=== PATIENT | male | born 1990 | race Caucasian/White ===

== ENCOUNTER 2021-08-16 11:20 | Inpatient (IN) | payer MEDICARE, MEDICAID, SELFPAY ==
[2021-08-16 11:45] VITALS: BMI 31.6
[2021-08-16 12:36] VITALS: BP 132/90; PULSE 87; RESP 18; TEMP 36.5; O2SAT 96
--- NOTE | 2021-08-16 13:29 | PC.NURSE ---
Patient requested to speak with someone from [facility]. Called #[id number] and left message.
[2021-08-16 14:00] VITALS: BP 132/90; PULSE 87; RESP 18; TEMP 36.5; O2SAT 96
--- NOTE | 2021-08-16 15:00 | P.NPUHP_ITS ---
Providers/Chief Complaint Admitting Physician: Taras Estrella MD Chief Complaint: Direct Admit NPU HPI NPU History of Present Illness Jose E Bright is a 30 year old male transferred here at here from the [facility] with the following report: Upon entering the room the patient states that my mom wants to kill me and I almost got hit by four cars . He frequently looks to the corner of the room and has a dialogue with the wall. He states that he is a brother in [place] and can save me from Satan . He is also trying to get out of the cartel . Patient states that he does hear voices and admits to visual hallucinations as well. According to the patient he last used methamphetamine yesterday but has been using for 65 years. He denies walking in traffic and trying to get hit by a car. He said that he had been dismissed from [facility] because of drug use. He said they wanted him to be on a 28-day treatment program. He said that prior to his treatment at the emergency room, he suddenly decided that he needed to walk 7 miles to the [facility] program and try again to get admitted into the program. He did that with no shoes on. Several attempts were made to determine why he did not wear shoes. He only said that he suddenly realized that he needed to do it and left the house without shoes. He said that they have tried to diagnose him with schizophrenia many times but he does not believe that he has that diagnosis. He initially denied hearing voices or seeing things but later did admit to having some voices in the past but not really now. He says that they gave him Haldol and fdc but he does not know why. He was in the fdc for tampering with a vehicle and resisting arrest. He is on disability since 2016. He does not know what his diagnosis was. He said he was given an MRI and had disability 1 month later. He does not feel that he has a mental health problem except for anger problems. He denies being in the psychiatric hospital previously. However he later said that when he is in the hospital he frequently gets angry because he is in so much pain. He says when that happens shouts at him horrible things and then he becomes angry and agitated and loses his temper. He says he hates that about himself. He later said that really his only problem is keeping a bipolar. I have had 30 of them. I cannot read them or understand them. He cannot preach from them . He is a very poor historian as far as medication goes. This seems to be more from not wanting to take medication as opposed to not remembering the information. He told the nurse that he was allergic to Haldol and gets a rash. He told me that they said he had a allergic reaction but he does not believe that he does. He has taken Haldol many times. However it does not do anything for him. He does not know why they prescribe it for him. They gave him multiple doses of Zyprexa Zydis when he was in the emergency room the last few days. He said it did not do anything for him. He has prescriptions in the system for Depakote 500 mg twice a day, risperidone 2 mg and trazodone 50 mg. At 1 point he said that he had never taken them before but they prescribed them at the hospital just this week. However he also said some other things to imply that he had taken them previously and that they did not do anything for him. He primarily wanted to take something for anger and agreed to take some Trileptal. He was given the list of antipsychotics and agreed to take some Geodon. He likes the fact that it is taken with food because he likes to eat. PAST PSYCHIATRIC HISTORY As above. SOCIAL HISTORY he said that his parents were neglectful and did not teach him anything. He said that he was pretty much on his own and they never taught him how to do anything or how to act. He denies any abuse as a child. The longest job that he has held was at [employer] for about 6 months. He was in the [employer] and made it through basic training and went AWOL a week later. His most recent job was at [employer]. At one point he said he quit because he could not make too much money or he would lose his disability. 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 Meds NPU Allergies Allergy/AdvReac Type Severity Reaction Status Date / Time haloperidol [From Haldol] Allergy ALGY-Rash Verified 08/16/21 11:47 Mental Status Exam 2 MSE Comments: This is a 30-year-old overweight male who appears well-nourished and well-developed and about his stated age. He is pleasant and cooperative throughout the interview. He is in hospital scrubs and fairly well groomed. psychomotor activity is normal. Speech is at a regular rate and rhythm, normal volume, good articulation, not pressured. Alert, oriented X3 Attention and concentration seems to be fairly good. Memory is intact Mood is good. Affect is euthymic. Thought process is logical and goal-directed. Thought content: Denies auditory and visual hallucinations. No delusions or paranoia are noted. No current suicidal ideation, and no homicidal ideation. Fund of knowledge is appears to be average. Insight and judgment appear to be poor. Impulse control is poor as well. Vitals/I&O/Wt Last Vital Signs Temp 97.7 F 08/16/21 14:00 Pulse 87 08/16/21 14:00 Resp 18 08/16/21 14:00 BP 132/90 08/16/21 14:00 Pulse Ox 96 08/16/21 14:00 Weight last 48 hrs Weight 97.341 kg A&P Assessment and plan (1) Schizophrenia, chronic condition: Plan: 1. We will start Trileptal 300 mg 3 times a day and Geodon 40 mg twice a day at his request. 2. Continue every 15 minute checks for safety. 3. Encourage individual, group and milieu therapies. 4. Encourage sober living treatment after discharge at the highest level of care to which she is willing to commit. 5. We will monitor for safety for himself in the community prior to discharge. Status: Acute (2) Methamphetamine abuse: Status: Acute Additional A&P Information This is a 30-year-old male who is on disability most likely from schizophrenia. He is not very forthcoming with symptoms. He agrees to take medication. Involuntary Hold Information 96 Hour Hold: 96 Hour Involuntary Admission: No Attestations NPU Medical Necessity Statement*: Inpatient hospitalization is medically necessary and the clinically appropriate intervention at this time. We will initiate medications and make changes as indicated. He will be in the hospital for over 2 midnights. Likely length of stay 4-6 days Coding Level of Care Code Acute Heavy Equipment Operator Apprentice for Francois Garrett Diagnoses Schizophrenia, chronic condition F20.9 Methamphetamine abuse F15.10
[2021-08-16] MEDS: OXcarbazepine 300 mg Tablet PO (17:09)
[2021-08-16] MEDS: ziprasidone hcl 40 mg Capsule PO (17:09)
[2021-08-16] MEDS: blistex lip oint 7 gm Tube 1 APPLIC TOPICAL (17:19)
[2021-08-16] MEDS: acetaminophen 325 mg Tablet 650 MG PO (18:02)
[2021-08-16 20:55] VITALS: BP 135/78; PULSE 67; RESP 15; TEMP 37.1; O2SAT 99
[2021-08-17] MEDS: acetaminophen 325 mg Tablet 650 MG PO (05:38)
[2021-08-17 06:00] VITALS: BP 138/95; PULSE 70; RESP 18; TEMP 36.8; O2SAT 100
[2021-08-17] MEDS: ziprasidone hcl 40 mg Capsule PO ×2 (06:06→16:47)
[2021-08-17] MEDS: OXcarbazepine 300 mg Tablet PO ×3 (06:06→16:47)
--- NOTE | 2021-08-17 12:40 | W.PM.NPUPNS ---
Subjective NPU Subjective: Interval history: He says he has a buzzing in his head and cannot think after taking the medicine this morning. He says is never happened before. He did not have a problem when he took it last night. We decided to take it again tonight and see how that goes and then tomorrow morning only take the Geodon and not the Trileptal. We will see if he has any side effects at that point. He then asked if we should change the diet that we had talked about starting yesterday. I told him I did not remember talking about changing his diet. He said that he used to drink a half a gallon of water a day. He would boil some water and put it in a pot with some butter and throwing a cup of oatmeal and eat that for breakfast. He would make a bologna sandwich and eat half of it and put the other half in a bag and eat it for dinner. He said that his thinking was more clear when he was on that diet than it had been before or since. Mental Status Exam MSE Comments: This is a 30-year-old overweight male who appears well-nourished and well-developed and about his stated age. He is pleasant and cooperative throughout the interview. He is in hospital scrubs and fairly well groomed. psychomotor activity is normal. Speech is at a regular rate and rhythm, normal volume, good articulation, not pressured. Alert, oriented X3 Attention and concentration seems to be fairly good. Memory is intact Mood is good. Affect is euthymic. Thought process is logical and goal-directed. Thought content: Denies auditory and visual hallucinations. No delusions or paranoia are noted. No current suicidal ideation, and no homicidal ideation. Fund of knowledge is appears to be average. Insight and judgment appear to be poor. Impulse control is poor as well. Cognition: Patient Appearance: Appears Older than Age Ability to Follow Directions: Good Patient Orientation (long list): Person, Name and Birthday Comprehension Ability: No Impairment Hallucination Type: Auditory Delusion Description: Not Present Thought Process: Logical Affect: Affect Description: Calm Behavior: Patient Behavior: Cooperative Speech Pattern: Clear Vitals/I&O/Wt Last Vital Signs Temp 98.3 F 08/17/21 06:00 Pulse 70 08/17/21 06:00 Resp 18 08/17/21 06:00 BP 138/95 08/17/21 06:00 Pulse Ox 100 08/17/21 06:00 Weight last 48 hrs Weight 97.341 kg A&P Assessment and plan (1) Schizophrenia, chronic condition: Plan: 1. We will start Trileptal 300 mg 3 times a day and Geodon 40 mg twice a day at his request. 2. Continue every 15 minute checks for safety. 3. Encourage individual, group and milieu therapies. 4. Encourage sober living treatment after discharge at the highest level of care to which she is willing to commit. 5. We will monitor for safety for himself in the community prior to discharge. Status: Acute (2) Methamphetamine abuse: Status: Acute Additional A&P Information This is a 30-year-old male who is on disability most likely from schizophrenia. He is not very forthcoming with symptoms. He agrees to take medication. Involuntary Hold Information 96 Hour Hold: 96 Hour Involuntary Admission: No Attestations NPU Medical Necessity Statement*: Inpatient hospitalization is medically necessary and the clinically appropriate intervention at this time. We will initiate medications and make changes as indicated. Coding Level of Care Code Acute Medical Delivery Driver for Francois Garrett Diagnoses Schizophrenia, chronic condition F20.9 Methamphetamine abuse F15.10
--- NOTE | 2021-08-17 13:24 | NPU.GN ---
[facility] Topic:Psychiatric Education General Mood of Group: Jose E did attend or participate in group today. Jose E was kind to others and was pleasant to others and this board writer in group. Jose E was well groom, and pleasant mood. Jose E sees a concrete finishing machine operator with [facility].
[2021-08-17 14:00] VITALS: BP 138/86; PULSE 86; RESP 18; TEMP 36.7; O2SAT 100
[2021-08-17] MEDS: OLANZapine 5 mg ODT PO (16:12)
--- NOTE | 2021-08-17 16:13 | PC.NURSE ---
Patient presented to nurses desk, flushed red over face, arms and truck, veins in arms distended, extremely diaphoretic. Speech pressured and rapid. Lungs CTA, pulses strong bilateral radial. Vital signs BP 127/81 P 105 R 18 PO 96% RA T 98.1. Denies trouble breathing, itching or headache. Patient very upset without knowing a firm discharge plan for a rehab program, yelling at senior program planner for not having an answer today. He agreed to take a PRN Zyprexa. After patient finished venting, patient skin was pink, dry and pulse 86 and calm, stated this is the first time he has felt like he has been himself since he has been here.
[2021-08-17] MEDS: blistex lip oint 7 gm Tube 1 APPLIC TOPICAL (16:41)
[2021-08-17] MEDS: trazodone 50 mg Tablet PO (20:40)
[2021-08-17] MEDS: hyDROXYzine 25 mg Capsule 50 MG PO (20:40)
[2021-08-17 21:21] VITALS: RESP 16
[2021-08-18] MEDS: acetaminophen 325 mg Tablet 650 MG PO (02:44)
[2021-08-18] MEDS: ziprasidone hcl 40 mg Capsule PO ×2 (04:50→17:32)
[2021-08-18] MEDS: OXcarbazepine 300 mg Tablet PO ×3 (04:50→17:32)
[2021-08-18 05:03] LABS: Glucose Point of Care 111 mg/dL (70-110)
[2021-08-18 06:00] VITALS: RESP 16
--- NOTE | 2021-08-18 11:40 | W.PM.NPUPNS ---
Subjective NPU Subjective: Interval history: I talked to him very briefly first thing in the morning. He said that he had taken the Trileptal and Geodon together and did not have any side effects. He is very wound up now. He is yelling at the mirror. He was asking for something to help with anxiety. He initially said that he wanted both his Trileptal and Geodon. Then he said that he did not need either 1 of those and wants to stop taking them and just take Abilify 5 mg once a week for the next 18 years until he is 38 years old he was telling other patients that plan is as I had agreed with it. I did agree to give him 5 mg of Abilify because that is all he would agree to take. He says he is all stressed out because of his family he said he is stressed out because all we need his Bibles. He said if we give everyone Bibles in their room they can be in the room with the door closed and the staff will not have to bother with them. I will need to wait until he comes down to talk to him about a more rational medication regimen. Mental Status Exam MSE Comments: This is a 30-year-old overweight male who appears well-nourished and well-developed and about his stated age. He is pleasant and cooperative throughout the interview. He is in hospital scrubs and fairly well groomed. psychomotor activity is increased. Speech is at a more rapid with increased rate, quantity and volume Alert, oriented X3 Attention and concentration seems to be fairly good. Memory is intact Mood is good. Affect is animated and irritable Thought process is logical and goal-directed. Thought content: Denies auditory and visual hallucinations. No delusions or paranoia are noted. No current suicidal ideation, and no homicidal ideation. Fund of knowledge is appears to be average. Insight and judgment appear to be poor. Impulse control is poor as well. Cognition: Patient Appearance: Appears Older than Age Ability to Follow Directions: Good Patient Orientation (long list): Person, Name and Birthday Comprehension Ability: No Impairment Hallucination Type: None Delusion Description: Not Present Thought Process: Logical Affect: Affect Description: Appropriate Behavior: Patient Behavior: Appropriate Speech Pattern: Appropriate Vitals/I&O/Wt Last Vital Signs Temp 98.1 F 08/17/21 14:00 Pulse 86 08/17/21 14:00 Resp 16 08/18/21 06:00 BP 138/86 08/17/21 14:00 Pulse Ox 100 08/17/21 14:00 Weight last 48 hrs Weight 97.341 kg A&P Assessment and plan (1) Schizophrenia, chronic condition: Plan: 1. We will start Trileptal 300 mg 3 times a day and Geodon 40 mg twice a day at his request. He is currently refusing those with except some Abilify 5 mg now. We'll try to talk to him about a different medication regimen when he calms down. 2. Continue every 15 minute checks for safety. 3. Encourage individual, group and milieu therapies. 4. Encourage sober living treatment after discharge at the highest level of care to which she is willing to commit. 5. We will monitor for safety for himself in the community prior to discharge. Status: Acute (2) Methamphetamine abuse: Status: Acute Additional A&P Information This is a 30-year-old male who is on disability most likely from schizophrenia. He is not very forthcoming with symptoms. He agrees to take medication. Involuntary Hold Information 96 Hour Hold: 96 Hour Involuntary Admission: No Attestations NPU Medical Necessity Statement*: Inpatient hospitalization is medically necessary and the clinically appropriate intervention at this time. We will initiate medications and make changes as indicated. Coding Level of Care Code Acute Cosmetic Sales for Francois Garrett Diagnoses Schizophrenia, chronic condition F20.9 Methamphetamine abuse F15.10
[2021-08-18 11:53] LABS: Glucose Point of Care 124 mg/dL (70-110)
[2021-08-18] MEDS: ARIPiprazole 10 mg Tablet 5 MG PO (12:08)
--- NOTE | 2021-08-18 12:30 | NPU.GN ---
[facility] Group Topic:roup Topic: What are we Thankful For General Mood of Group: Jose E did attend group and he participated . He was social and in a good mindset, and was respectful. His hygiene was ok, and he was very nice about sharing a Thanksgiving Prayer for the medical writer and the patients in group. Jose E seems mentally stable.
[2021-08-18 14:00] VITALS: BP 139/95; PULSE 102; RESP 18; TEMP 37.2; O2SAT 98
[2021-08-18 16:53] LABS: Glucose Point of Care 100 mg/dL (70-110)
[2021-08-18] MEDS: trazodone 50 mg Tablet PO (20:37)
[2021-08-18] MEDS: hyDROXYzine 25 mg Capsule 50 MG PO (20:37)
[2021-08-18 21:43] VITALS: BP 175/101; PULSE 79; RESP 15; TEMP 37.2; O2SAT 98
[2021-08-18] MEDS: OLANZapine 5 mg ODT PO (22:48)
[2021-08-18] MEDS: ibuprofen 800 mg tablet PO (22:48)
--- NOTE | 2021-08-18 22:56 | PC.NURSE ---
At 2036, pt noted to have increased anxiety and agitation, yelling at staff and preventing other patients from being given scheduled medication. pt was given trazodone 50mg po for sleep and vistaril 50mg po for anxiety/agitation. at 2247, pt was given motrin 800mg po for complaint of head pain at scar site. pt also given zyprexa zydis 5mg sl for continued anxiety.
[2021-08-19 06:00] VITALS: BP 108/80; PULSE 62; RESP 17; TEMP 37.2; O2SAT 98
[2021-08-19] MEDS: OXcarbazepine 300 mg Tablet PO ×3 (08:44→17:21)
[2021-08-19] MEDS: ziprasidone hcl 40 mg Capsule PO (08:44)
[2021-08-19 11:25] LABS: Glucose Point of Care 119 mg/dL (70-110)
--- NOTE | 2021-08-19 12:26 | P.NPUPN_ITS ---
Subjective NPU Subjective: Interval history: He had a difficult day yesterday. He was a little hyper. At one point he said he was going to stop taking his Geodon and Trileptal and only take Abilify 5 mg every 4 days. He did continue to be compliant and has taken all of his doses of Geodon and Trileptal. Today he says he is better and that the medications are helping him. He agreed to increase the Geodon to 60 mg twice a day. He asked about a plan and said that he had heard about 96-hour hold and 21-day programs and wanted to know if he should sign up for those. He was told that he could probably leave in 3 or 4 days if he continued to take his medications and be cooperative. Mental Status Exam MSE Comments: This is a 30-year-old overweight male who appears well-nourished and well-developed and about his stated age. He is pleasant and cooperative throughout the interview. He is in hospital scrubs and fairly well groomed. psychomotor activity is increased. Speech is at a a little rapid with but better than yesterday, quantity and volume Alert, oriented X3 Attention and concentration seems to be fairly good. Memory is intact Mood is good. Affect is euthymic. Not animated and irritable like yesterday. Thought process is logical and goal-directed. Thought content: Denies auditory and visual hallucinations. No delusions or paranoia are noted. No current suicidal ideation, and no homicidal ideation. Fund of knowledge is appears to be average. Insight and judgment appear to be poor. Impulse control is poor as well. Cognition: Patient Appearance: Appears Older than Age Ability to Follow Directions: Good Patient Orientation (long list): Person, Place, Time, Name, Age and Birthday Comprehension Ability: No Impairment Hallucination Type: None Delusion Description: Nondenominational Thought Process: Logical Affect: Affect Description: Appropriate Behavior: Patient Behavior: Appropriate and Cooperative Speech Pattern: Appropriate and Clear Vitals/I&O/Wt Last Vital Signs Temp 98.9 F 08/19/21 06:00 Pulse 62 08/19/21 06:00 Resp 17 08/19/21 06:00 BP 108/80 08/19/21 06:00 Pulse Ox 98 08/19/21 06:00 A&P Assessment and plan (1) Schizophrenia, chronic condition: Plan: 1. Continue Trileptal 300 mg 3 times a day and increase Geodon 60 mg twice day. 2. Continue every 15 minute checks for safety. 3. Encourage individual, group and milieu therapies. 4. Encourage sober living treatment after discharge at the highest level of care to which she is willing to commit. 5. We will monitor for safety for himself in the community prior to discharge. Status: Acute (2) Methamphetamine abuse: Status: Acute Additional A&P Information This is a 30-year-old male who is on disability most likely from schizophrenia. He is not very forthcoming with symptoms. He agrees to take medication. Involuntary Hold Information 96 Hour Hold: 96 Hour Involuntary Admission: No Attestations NPU Medical Necessity Statement*: Inpatient hospitalization is medically necessary and the clinically appropriate intervention at this time. We will initiate medications and make changes as indicated. Coding Level of Care Code Acute Cleaner Signs for Francois Garrett Diagnoses Schizophrenia, chronic condition F20.9 Methamphetamine abuse F15.10
--- NOTE | 2021-08-19 13:06 | NPU.GN ---
[facility] Topic:Group Topic: Pie of Emotions, Coping, and Supports General Mood of Group: Jose E did attend and participate in group. He was groomed and he was social and pleasant with others and this customs entry writer in group.
[2021-08-19 14:00] VITALS: BP 132/91; PULSE 104; RESP 18; TEMP 36.4; O2SAT 97
[2021-08-19] MEDS: ziprasidone hcl 60 mg Capsule PO (17:21)
[2021-08-19] MEDS: ibuprofen 800 mg tablet PO (18:20)
[2021-08-19 21:03] VITALS: RESP 18
[2021-08-20] MEDS: hyDROXYzine 25 mg Capsule 50 MG PO ×3 (04:20→20:19)
[2021-08-20] MEDS: OLANZapine 5 mg ODT PO ×3 (04:25→20:19)
[2021-08-20] MEDS: acetaminophen 325 mg Tablet 650 MG PO (05:18)
[2021-08-20 06:00] VITALS: BP 142/85; PULSE 91; RESP 17; O2SAT 97
[2021-08-20] MEDS: OXcarbazepine 300 mg Tablet PO ×3 (06:20→16:39)
[2021-08-20] MEDS: ziprasidone hcl 60 mg Capsule PO ×2 (06:20→16:39)
[2021-08-20] MEDS: cetirizine 10 mg Tablet PO (13:17)
--- NOTE | 2021-08-20 13:36 | PC.NURSE ---
Patient complaining of head congestion, and watery eyes. Zyrtec given.
[2021-08-20 14:00] VITALS: BP 134/91; PULSE 108; RESP 18; TEMP 36.6; O2SAT 97
--- NOTE | 2021-08-20 14:00 | P.NPUPN_ITS ---
Subjective NPU Subjective: Interval history: He continues to be very needy. He is asking questions of social work very frequently. He had some papers about a local facility where they have found a bed available. He asked me for clarification about how he was supposed to take the medication. He seems to not remember what medication he was taking or when he takes it. He was hoping to be discharged tomorrow but agreed to wait until Tuesday. Mental Status Exam MSE Comments: This is a 30-year-old overweight male who appears well-nourished and well-developed and about his stated age. He is pleasant and cooperative throughout the interview. He is in hospital scrubs and fairly well groomed. psychomotor activity is increased. Speech is at a a little rapid with but better than yesterday, quantity and volume Alert, oriented X3 Attention and concentration seems to be fairly good. Memory is intact Mood is good. Affect is euthymic. Not animated and irritable like yesterday. Thought process is logical and goal-directed. Thought content: Denies auditory and visual hallucinations. No delusions or paranoia are noted. No current suicidal ideation, and no homicidal ideation. Fund of knowledge is appears to be average. Insight and judgment appear to be poor. Impulse control is poor as well. Cognition: Patient Appearance: Appears Older than Age Ability to Follow Directions: Good Patient Orientation (long list): Person, Place, Time, Name, Age and Birthday Comprehension Ability: No Impairment Hallucination Type: None Delusion Description: Presybeterian Thought Process: Logical Affect: Affect Description: Anxious Behavior: Patient Behavior: Appropriate and Cooperative Speech Pattern: Appropriate and Clear Vitals/I&O/Wt Last Vital Signs Temp 97.6 F 08/19/21 14:00 Pulse 91 08/20/21 06:00 Resp 17 08/20/21 06:00 BP 142/85 08/20/21 06:00 Pulse Ox 97 08/20/21 06:00 A&P Assessment and plan (1) Schizophrenia, chronic condition: Plan: 1. Continue Trileptal 300 mg 3 times a day and increase Geodon 60 mg twice day. 2. Continue every 15 minute checks for safety. 3. Encourage individual, group and milieu therapies. 4. Encourage sober living treatment after discharge at the highest level of care to which she is willing to commit. 5. We will monitor for safety for himself in the community prior to discharge. Status: Acute (2) Methamphetamine abuse: Status: Acute Additional A&P Information This is a 30-year-old male who is on disability most likely from schizophrenia. He is not very forthcoming with symptoms. He agrees to take medication. Involuntary Hold Information 96 Hour Hold: 96 Hour Involuntary Admission: No Attestations NPU Medical Necessity Statement*: Inpatient hospitalization is medically necessary and the clinically appropriate intervention at this time. We will initiate medications and make changes as indicated. Coding Level of Care Code Acute Tank Car Cleaner for Francois Garrett Diagnoses Schizophrenia, chronic condition F20.9 Methamphetamine abuse F15.10
--- NOTE | 2021-08-20 17:40 | PC.NURSE ---
Patient came out of room, looked at nurses desk and stated, Anya I hate you, but what day is it.? Gave him the date 3 days times and each time he repeated he hated me.
[2021-08-20 19:13] VITALS: BP 135/89; PULSE 91; RESP 18; TEMP 36.7; O2SAT 100
[2021-08-20] MEDS: trazodone 50 mg Tablet PO (20:19)
[2021-08-21] MEDS: trazodone 50 mg Tablet PO (01:46)
[2021-08-21] MEDS: hyDROXYzine 25 mg Capsule 50 MG PO (01:47)
[2021-08-21] MEDS: OLANZapine 5 mg ODT PO (01:56)
--- NOTE | 2021-08-21 03:02 | PC.NURSE ---
patient is yelling from bedroom door through nurses station regarding disruption to him during 15 minute safety checks. Patient is beligerant, loud and verbally aggressive.
[2021-08-21] MEDS: acetaminophen 325 mg Tablet 650 MG PO (04:13)
[2021-08-21] MEDS: LORazepam 2 mg/mL INJ 1 mL IM (04:14)
[2021-08-21] MEDS: diphenhydrAMINE 50 mg/mL SDV 1mL IM (04:14)
--- NOTE | 2021-08-21 04:29 | PC.NURSE ---
Addendum entered by Stephanie Joyce RN 08/21/21 04:34: patient is delusional requesting that staff order some more bibles from the president. Original Note: patient pacing in room. his face has reddened. patient is extremely agitated and fears he may be unable to control his rage. unable to be verbally redirected. PRN administered. tolerated well. continue to monitor patient.
[2021-08-21 05:33] VITALS: RESP 18
[2021-08-21] MEDS: cetirizine 10 mg Tablet PO (08:36)
[2021-08-21] MEDS: OXcarbazepine 300 mg Tablet PO ×3 (08:36→16:58)
[2021-08-21] MEDS: ziprasidone hcl 60 mg Capsule PO ×2 (08:37→16:58)
--- NOTE | 2021-08-21 10:03 | W.PM.NPUPNS ---
Subjective NPU Subjective: Interval history: He does not seem to be getting any better. He was given a B-52 this morning that had little effect. He is not sleeping at night. He said he has a place to go. He says that they have accepted him if we can arrange transportation. When he was told that he was not ready to go he became very threatening and started yelling that the medications are evil and that they are what are causing the problems. Mental Status Exam MSE Comments: This is a 30-year-old overweight male who appears well-nourished and well-developed and about his stated age. He became threatening and loud when told that he was not ready to go home. He is in hospital scrubs and fairly well groomed. psychomotor activity is increased. Speech is at a a little rapid with but better than yesterday, quantity and volume Alert, oriented X3 Attention and concentration seems to be fairly good. Memory is intact Mood is good. Affect is euthymic. Not animated and irritable like yesterday. Thought process is logical and goal-directed. Thought content: Denies auditory and visual hallucinations. No delusions or paranoia are noted. No current suicidal ideation, and no homicidal ideation. Fund of knowledge is appears to be average. Insight and judgment appear to be poor. Impulse control is poor as well. Cognition: Patient Appearance: Appears Older than Age Ability to Follow Directions: Good Patient Orientation (long list): Person, Place, Time, Name, Age and Birthday Comprehension Ability: No Impairment Hallucination Type: None Delusion Description: Latter Day Thought Process: Logical Affect: Affect Description: Calm Behavior: Patient Behavior: Appropriate Speech Pattern: Pressured Vitals/I&O/Wt Last Vital Signs Temp 98.1 F 08/20/21 19:13 Pulse 91 08/20/21 19:13 Resp 18 08/21/21 05:33 BP 135/89 08/20/21 19:13 Pulse Ox 100 08/20/21 19:13 A&P Assessment and plan (1) Schizophrenia, chronic condition: Plan: 1. Continue Trileptal 300 mg 3 times a day and increase Geodon 60 mg twice day. Add Seroquel 200 mg at bedtime. 2. Continue every 15 minute checks for safety. 3. Encourage individual, group and milieu therapies. 4. Encourage sober living treatment after discharge at the highest level of care to which she is willing to commit. 5. We will monitor for safety for himself in the community prior to discharge. Status: Acute (2) Methamphetamine abuse: Status: Acute Additional A&P Information This is a 30-year-old male who is on disability most likely from schizophrenia. He is not very forthcoming with symptoms. He agrees to take medication. Involuntary Hold Information 96 Hour Hold: 96 Hour Involuntary Admission: No Attestations NPU Medical Necessity Statement*: Inpatient hospitalization is medically necessary and the clinically appropriate intervention at this time. We will initiate medications and make changes as indicated. Coding Level of Care Code Acute Environmental Engineering Professor for Francois Garrett Diagnoses Schizophrenia, chronic condition F20.9 Methamphetamine abuse F15.10
[2021-08-21 14:00] VITALS: BP 116/72; PULSE 112; RESP 20; TEMP 36.4; O2SAT 96
[2021-08-21 20:25] VITALS: RESP 16
[2021-08-22 05:58] VITALS: BP 138/95; PULSE 97; RESP 18; TEMP 36.8; O2SAT 99
[2021-08-22] MEDS: OXcarbazepine 300 mg Tablet PO ×3 (06:20→18:32)
[2021-08-22] MEDS: ziprasidone hcl 60 mg Capsule PO ×2 (06:20→17:41)
--- NOTE | 2021-08-22 07:08 | W.PM.NPUPNS ---
Subjective NPU Subjective: Interval history: He is more calm today. He was asleep at 7 PM and did not wake up until 4 AM. He said that he feels better and more calm today. He said that he got up and read his Bible some this morning. He did not get the Seroquel that I ordered because he was asleep. He is apologetic for yelling and threatening me yesterday. He minimized the importance. He said that he did understand that that did not help his case for being ready for discharge. Mental Status Exam MSE Comments: This is a 30-year-old overweight male who appears well-nourished and well-developed and about his stated age. He was pleasant and cooperative this morning. He is in hospital scrubs and fairly well groomed. psychomotor activity is mildly increased less than yesterday. Speech is of normal rate and rhythm and volume. Alert, oriented X3 Attention and concentration seems to be fairly good. Memory is intact Mood is good. Affect is euthymic. Not animated and irritable like yesterday. Thought process is logical and goal-directed. Thought content: Denies auditory and visual hallucinations. No delusions or paranoia are noted. No current suicidal ideation, and no homicidal ideation. Fund of knowledge is appears to be average. Insight and judgment appear to be poor. Impulse control is poor as well. Cognition: Patient Appearance: Appears Older than Age Ability to Follow Directions: Good Patient Orientation (long list): Person, Place, Time, Name, Age and Birthday Comprehension Ability: No Impairment Hallucination Type: None Delusion Description: Episcopal Thought Process: Logical Affect: Affect Description: Calm Behavior: Patient Behavior: Appropriate Speech Pattern: Pressured Vitals/I&O/Wt Last Vital Signs Temp 98.2 F 08/22/21 05:58 Pulse 97 08/22/21 05:58 Resp 18 08/22/21 05:58 BP 138/95 08/22/21 05:58 Pulse Ox 99 08/22/21 05:58 A&P Assessment and plan (1) Schizophrenia, chronic condition: This is a 30-year-old single male with a history of schizophrenia and methamphetamine abuse admitted through the emergency room for psychosis and saying that his mother was trying to kill him. Plan: 1. Continue Trileptal 300 mg 3 times a day and increase Geodon 60 mg twice day. Add Seroquel 200 mg at bedtime. 2. Continue every 15 minute checks for safety. 3. Encourage individual, group and milieu therapies. 4. Encourage sober living treatment after discharge at the highest level of care to which she is willing to commit. 5. We will monitor for safety for himself in the community prior to discharge. Status: Acute (2) Methamphetamine abuse: Status: Acute Additional A&P Information This is a 30-year-old male who is on disability most likely from schizophrenia. He is not very forthcoming with symptoms. He agrees to take medication. Involuntary Hold Information 96 Hour Hold: 96 Hour Involuntary Admission: No Attestations NPU Medical Necessity Statement*: Inpatient hospitalization is medically necessary and the clinically appropriate intervention at this time. We will initiate medications and make changes as indicated. Coding Level of Care Code Acute Sheet Metal Assembler for Francois Garrett Diagnoses Schizophrenia, chronic condition F20.9 Methamphetamine abuse F15.10
[2021-08-22] MEDS: cetirizine 10 mg Tablet PO (10:17)
[2021-08-22 14:00] VITALS: BP 129/80; PULSE 101; RESP 18; TEMP 36.5; O2SAT 98
--- NOTE | 2021-08-22 18:32 | PC.NURSE ---
Patient up in morning. Calm most of day. Thought process remains delusional and hyper taoism. Patient has been redirectable most of day. Interacting calmly with peers mostly. Patient shaved face with staff supervision in morning. Denies AVH and SI/HI. Patient did have brief outburst around 1600. Yelling at hallucination. Staff came to colindres for increased presence and approached patient. Patient went to dayroom at that time, sat down and told staff that he was ok now and not angry anymore as soon as they entered room. Patient sitting calmly watching TV after. Declined PRN meds that were offered. Staff monitoring closely. No further outbursts during this shift.
[2021-08-22 19:42] VITALS: BP 156/107; PULSE 112; RESP 18; TEMP 37.2; O2SAT 98
--- NOTE | 2021-08-22 20:25 | PC.NURSE ---
blood pressure 156/10/. notified. no new orders given.
[2021-08-22] MEDS: quetiapine 100 mg Tablet 200 MG PO (20:31)
[2021-08-22] MEDS: hyDROXYzine 25 mg Capsule 50 MG PO (23:10)
[2021-08-22] MEDS: trazodone 50 mg Tablet PO (23:10)
[2021-08-23 06:00] VITALS: RESP 20
[2021-08-23] MEDS: OXcarbazepine 300 mg Tablet PO ×2 (06:34→11:54)
[2021-08-23] MEDS: ziprasidone hcl 60 mg Capsule PO ×2 (06:34→17:29)
--- NOTE | 2021-08-23 07:09 | P.NPUPN_ITS ---
Subjective NPU Subjective: Interval history: He got the Seroquel 200 mg last night for the first time. He did not go to sleep afterwards and needed trazodone and Vistaril at 11 p.m. and then went to sleep and slept fairly well last night. He said that he would like the Seroquel increased. He is calm so far this morning. He said that his voice is hoarse from yelling yesterday. He admitted that he gets angry very easily. He also calm down fairly quickly. Yesterday when I was in the nurses station he spoke loudly to me asking me to get him some water. He had also asked me to get one of the caution cones that they use for slippery floors. Mental Status Exam MSE Comments: This is a 30-year-old overweight male who appears well-nourished and well-developed and about his stated age. He was pleasant and cooperative this morning. He is in hospital scrubs and fairly well groomed. psychomotor activity is 6:45 AM. Speech is of normal rate and rhythm and volume. Alert, oriented X3 Attention and concentration seems to be fairly good. Memory is intact Mood is good. Affect is euthymic. Not animated and irritable like yesterday. Thought process is logical and goal-directed. Thought content: Denies auditory and visual hallucinations. No delusions or paranoia are noted. No current suicidal ideation, and no homicidal ideation. Fund of knowledge is appears to be average. Insight and judgment appear to be poor. Impulse control is poor as well. Cognition: Patient Appearance: Appropriate Ability to Follow Directions: Good Patient Orientation (long list): Person, Place, Time, Name, Age and Birthday Comprehension Ability: No Impairment Hallucination Type: None Delusion Description: Jehovah'S Witness Thought Process: Disorganized, Loose Associations, Perseveration and Tangential Affect: Affect Description: Anxious, Depressed and Labile Behavior: Patient Behavior: Cooperative and Impulsive Speech Pattern: Clear and Excessive Vitals/I&O/Wt Last Vital Signs Temp 98.9 F 08/22/21 19:42 Pulse 112 H 08/22/21 19:42 Resp 20 H 08/23/21 06:00 BP 156/107 08/22/21 19:42 Pulse Ox 98 08/22/21 19:42 Weight last 48 hrs Weight 100.301 kg A&P Assessment and plan (1) Schizophrenia, chronic condition: This is a 30-year-old single male with a history of schizoph lindsey and methamphetamine abuse admitted through the emergency room for psychosis and saying that his mother was trying to kill him. Plan: 1. Continue Trileptal 300 mg 3 times a day and increase Geodon 80 mg twice day. increase Seroquel 300 mg at bedtime. 2. Continue every 15 minute checks for safety. 3. Encourage individual, group and milieu therapies. 4. Encourage sober living treatment after discharge at the highest level of care to which she is willing to commit. 5. We will monitor for safety for himself in the community prior to discharge. Status: Acute (2) Methamphetamine abuse: Status: Acute Additional A&P Information This is a 30-year-old male who is on disability most likely from schizophrenia. He is not very forthcoming with symptoms. He agrees to take medication. Involuntary Hold Information 96 Hour Hold: 96 Hour Involuntary Admission: No Attestations NPU Medical Necessity Statement*: Inpatient hospitalization is medically necessary and the clinically appropriate intervention at this time. We will initiate medications and make changes as indicated. Coding Level of Care Code Acute Steel Sampler for Francois Garrett Diagnoses Schizophrenia, chronic condition F20.9 Methamphetamine abuse F15.10
[2021-08-23] MEDS: cetirizine 10 mg Tablet PO (09:12)
[2021-08-23 14:00] VITALS: BP 146/84; PULSE 93; RESP 17; TEMP 36.2; O2SAT 98
[2021-08-23] MEDS: quetiapine 300 mg Tablet PO (17:29)
[2021-08-23 21:36] VITALS: BP 150/95; PULSE 93; RESP 18; TEMP 36.6; O2SAT 97
[2021-08-24 06:00] VITALS: BP 142/101; PULSE 82; RESP 18; TEMP 36.6; O2SAT 98
[2021-08-24] MEDS: hyDROXYzine 25 mg Capsule 50 MG PO ×2 (07:38→11:59)
[2021-08-24] MEDS: cetirizine 10 mg Tablet PO ×2 (07:38→07:50)
[2021-08-24] MEDS: OLANZapine 5 mg ODT PO (07:38)
[2021-08-24] MEDS: OXcarbazepine 300 mg Tablet PO ×3 (07:49→17:27)
[2021-08-24] MEDS: ziprasidone hcl 60 mg Capsule PO (07:50)
[2021-08-24] MEDS: acetaminophen 325 mg Tablet 650 MG PO (10:20)
--- NOTE | 2021-08-24 10:56 | P.NPUPN_ITS ---
Subjective NPU Subjective: Interval history: He has been having more angry outbursts lately. He yelled last night. This morning he wanted to eat his food in his room and became extremely loud and aggressive when told that he should eat in the day room. He threw his tray and was yelling. He refused his morning medications. As usual, he calm down quickly and took his morning medication. About an hour later he insisted on leaving. He said that his response at breakfast was controlled and not allowed. I told him that I heard him yelling loudly in my office he said how could you do that through the glass. He insisted on leaving and I told him we would have to do a 96-hour hold and he said that that is what we would need to do. Mental Status Exam MSE Comments: This is a 30-year-old overweight male who appears well-nourished and well-developed and about his stated age. He was pleasant and cooperative this morning. He is in hospital scrubs and fairly well groomed. psychomotor activity is increased. He seems like he is trying hard to maintain control. Speech is of normal rate and rhythm and volume. Alert, oriented X3 Attention and concentration seems to be fairly good. Memory is intact Mood is angry. Affect is frustrated and irritable. Thought process is logical and goal-directed. Thought content: Denies auditory and visual hallucinations. No delusions or paranoia are noted. No current suicidal ideation, and no homicidal ideation. Fund of knowledge is appears to be average. Insight and judgment appear to be poor. Impulse control is poor as well. Cognition: Patient Appearance: Appropriate Ability to Follow Directions: Good Patient Orientation (long list): Person, Place, Time, Name, Age and Birthday Comprehension Ability: No Impairment Hallucination Type: None Delusion Description: Hindu Thought Process: Disorganized, Loose Associations, Perseveration and Tangential Affect: Affect Description: Appropriate Behavior: Patient Behavior: Appropriate Speech Pattern: Appropriate Vitals/I&O/Wt Last Vital Signs Temp 97.9 F 08/24/21 06:00 Pulse 82 08/24/21 06:00 Resp 18 08/24/21 06:00 BP 142/101 08/24/21 06:00 Pulse Ox 98 08/24/21 06:00 Weight last 48 hrs Weight 100.301 kg A&P Assessment and plan (1) Schizophrenia, chronic condition: This is a 30-year-old single male with a history of schizophrenia and methamphetamine abuse admitted through the emergency room for psychosis and saying that his mother was trying to kill him. Plan: 1. Continue Trileptal 300 mg 3 times a day and Geodon 80 mg twice day. Seroquel 300 mg at bedtime. Add lithium twice a day and increased to 3 times a day if tolerated. 2. Continue every 15 minute checks for safety. 3. Encourage individual, group and milieu therapies. 4. Encourage sober living treatment after discharge at the highest level of care to which she is willing to commit. 5. We will monitor for safety for himself in the community prior to discharge. 6. We will institute a 96-hour hold. Status: Acute (2) Methamphetamine abuse: Status: Acute Additional A&P Information This is a 30-year-old male who is on disability most likely from schizophrenia. He is not very forthcoming with symptoms. He agrees to take medication. Involuntary Hold Information 96 Hour Hold: 96 Hour Involuntary Admission: No Attestations U Medical Necessity Statement*: Inpatient hospitalization is medically necessary and the clinically appropriate intervention at this time. We will initiate medications and make changes as indicated. Coding Level of Care Code Acute Bulk Materials Handling Plant Operator for Francois Garrett Diagnoses Schizophrenia, chronic condition F20.9 Methamphetamine abuse F15.10
[2021-08-24 14:00] VITALS: BP 131/90; PULSE 90; RESP 20; TEMP 36.2; O2SAT 98
--- NOTE | 2021-08-24 14:07 | NPU.GN ---
[facility] Topic:Coping Mechanisms General Mood of Group: Jose E did attend and participate in group today. His hygiene was good, but he seemed as though he was there but wasnt His demeanor seemed off today. .
[2021-08-24] MEDS: lithium carbonate 300 mg Capsule PO (17:27)
[2021-08-24] MEDS: ziprasidone hcl 40 mg Capsule 80 MG PO (17:27)
[2021-08-24] MEDS: quetiapine 300 mg Tablet PO (17:27)
[2021-08-24 21:19] VITALS: RESP 18
[2021-08-25] MEDS: OXcarbazepine 300 mg Tablet PO ×3 (06:20→17:11)
[2021-08-25] MEDS: ziprasidone hcl 40 mg Capsule 80 MG PO ×2 (06:21→17:11)
[2021-08-25 06:31] VITALS: BP 131/67; PULSE 83; RESP 18; TEMP 36.1; O2SAT 99
[2021-08-25] MEDS: lithium carbonate 300 mg Capsule PO ×2 (10:39→18:24)
[2021-08-25] MEDS: cetirizine 10 mg Tablet PO (10:40)
--- NOTE | 2021-08-25 13:22 | NPU.GN ---
[facility] Topic:Depression Bingo General Mood of Group : Jose E did attend and participated in group. He was in a good mindset and had good hygiene. He is also very confused about his discharge plan and where he is going to live. But plans on finding a job.
--- NOTE | 2021-08-25 13:56 | P.NPUPN_ITS ---
Subjective NPU Subjective: Interval history: He was in bed at 1:45 PM. He says that he has not had any side effects from the 2 doses of lithium that he has had. He feels that it has helped his thoughts be more clear. He says he still does not have much to be happy about. We discussed the rationale for using lithium as well as the potential side effects. Mental Status Exam MSE Comments: This is a 30-year-old overweight male who appears well-nourished and well-developed and about his stated age. He was pleasant and cooperative this afternoon. He is in hospital scrubs and fairly well groomed. He is in bed at 1:45 PM psychomotor activity is appropriate for someone in bed. Speech is of normal rate and rhythm and volume. Alert, oriented X3 Attention and concentration seems to be fairly good. Memory is intact Mood is good. Affect is euthymic. Thought process is logical and goal-directed. Thought content: Denies auditory and visual hallucinations. No delusions or paranoia are noted. No current suicidal ideation, and no homicidal ideation. Fund of knowledge is appears to be average. Insight and judgment appear to be poor. Impulse control is poor as well. Cognition: Patient Appearance: Appropriate Ability to Follow Directions: Good Patient Orientation (long list): Person, Place, Time, Name, Age and Birthday Comprehension Ability: No Impairment Hallucination Type: None Delusion Description: Muslim Thought Process: Disorganized, Loose Associations, Perseveration and Tangential Affect: Affect Description: Calm and Guarded Behavior: Patient Behavior: Cooperative Speech Pattern: Clear and Pressured Vitals/I&O/Wt Last Vital Signs Temp 97.0 F L 08/25/21 06:31 Pulse 83 08/25/21 06:31 Resp 18 08/25/21 06:31 BP 131/67 08/25/21 06:31 Pulse Ox 99 08/25/21 06:31 A&P Assessment and plan (1) Schizophrenia, chronic condition: This is a 30-year-old single male with a history of schizophrenia and methamphetamine abuse admitted through the emergency room for psychosis and saying that his mother was trying to kill him. Plan: 1. Continue Trileptal 300 mg 3 times a day and Geodon 80 mg twice day. Seroquel 300 mg at bedtime. Add lithium twice a day and increased to 3 times a day if tolerated. 2. Continue every 15 minute checks for safety. 3. Encourage individual, group and milieu therapies. 4. Encourage sober living treatment after discharge at the highest level of care to which she is willing to commit. 5. We will monitor for safety for himself in the community prior to discharge. Status: Acute (2) Methamphetamine abuse: Status: Acute Additional A&P Information This is a 30-year-old male who is on disability most likely from schizophrenia. He is not very forthcoming with symptoms. He agrees to take medication. Involuntary Hold Information 96 Hour Hold: 96 Hour Involuntary Admission: No Attestations NPU Medical Necessity Statement*: Inpatient hospitalization is medically necessary and the clinically appropriate intervention at this time. We will initiate medications and make changes as indicated. Coding Level of Care Code Acute Dough Machine Operator for Francois Garrett Diagnoses Schizophrenia, chronic condition F20.9 Methamphetamine abuse F15.10
[2021-08-25 14:00] VITALS: BP 132/85; PULSE 104; RESP 18; TEMP 36.3; O2SAT 97
[2021-08-25] MEDS: quetiapine 300 mg Tablet PO (17:11)
[2021-08-25 22:00] VITALS: RESP 19
[2021-08-26 06:00] VITALS: BP 129/71; PULSE 108; RESP 18; O2SAT 95
[2021-08-26] MEDS: OXcarbazepine 300 mg Tablet PO ×2 (06:10→11:57)
[2021-08-26] MEDS: ziprasidone hcl 40 mg Capsule 80 MG PO ×2 (06:10→17:53)
[2021-08-26] MEDS: cetirizine 10 mg Tablet PO (08:51)
[2021-08-26] MEDS: lithium carbonate 300 mg Capsule PO ×3 (08:51→17:54)
[2021-08-26] MEDS: docusate sodium 100 mg Capsule PO (08:51)
--- NOTE | 2021-08-26 13:23 | NPU.GN ---
[facility] Topic:Group Topic:Whine Barrel Activity General Mood of Group: Jose E did attend group and participated. He was in good spirits and was well groomed.
--- NOTE | 2021-08-26 13:54 | P.NPUPN_ITS ---
Subjective NPU Subjective: Interval history: He has not lost his temper in the last 24 hours that I know of. Slept a little better last night. He denies any side effects from the lithium. I found him sitting on his bed at about 1:30 PM. He said that he was doing better. He said that he was happy because now he knows that God is the father. He talked about the scriptures that he is reading and wanting to get a Bible when he gets out of here. His thinking still clearly is not right. He still asked me almost every day to something as I fired was his naturalization examiner. Today he asked me if I would call his mother and asked her if she would quit smoking and spread the news in the family that they should quit smoking also. Minutes later he asked me if I could arrange a doctor for his mother. Other times he asked me to get him a glass of water or find him something. Mental Status Exam MSE Comments: This is a 30-year-old overweight male who appears well-nourished and well-developed and about his stated age. He was pleasant and cooperative this afternoon. He is in hospital scrubs and fairly well groomed. He is sitting on his bed at 1:30 PM psychomotor activity is appropriate for someone in bed. Speech is of normal rate and rhythm and volume. Alert, oriented X3 Attention and concentration seems to be fairly good. Memory is intact Mood is good. Affect is euthymic. Thought process is logical and goal-directed. Thought content: Denies auditory and visual hallucinations. No delusions or paranoia are noted. No current suicidal ideation, and no homicidal ideation. Fund of knowledge is appears to be average. Insight and judgment appear to be poor be improving . Impulse control is poor as well but may be improving Cognition: Patient Appearance: Appropriate Ability to Follow Directions: Good Patient Orientation (long list): Person, Place, Time, Name, Age and Birthday Comprehension Ability: No Impairment Hallucination Type: None Delusion Description: Latter Day Thought Process: Disorganized, Loose Associations, Perseveration and Tangential Affect: Affect Description: Calm and Guarded Behavior: Patient Behavior: Cooperative Speech Pattern: Clear and Pressured Vitals/I&O/Wt Last Vital Signs Temp 97.3 F L 08/25/21 14:00 Pulse 108 H 08/26/21 06:00 Resp 18 08/26/21 06:00 BP 129/71 08/26/21 06:00 Pulse Ox 95 08/26/21 06:00 A&P Assessment and plan (1) Schizophrenia, chronic condition: This is a 30-year-old single male with a history of schizophrenia and methamphetamine abuse admitted through the emergency room for psychosis and saying that his mother was trying to kill him. Plan: 1. Continue Trileptal 300 mg 3 times a day and Geodon 80 mg twice day. Seroquel 300 mg at bedtime. Add lithium twice a day and increased to 3 times a day if tolerated. 2. Continue every 15 minute checks for safety. 3. Encourage individual, group and milieu therapies. 4. Encourage sober living treatment after discharge at the highest level of care to which she is willing to commit. 5. We will monitor for safety for himself in the community prior to discharge. Status: Acute (2) Methamphetamine abuse: Status: Acute Additional A&P Information This is a 30-year-old male who is on disability most likely from schizophrenia. He is not very forthcoming with symptoms. He agrees to take medication. Involuntary Hold Information 96 Hour Hold: 96 Hour Involuntary Admission: No Attestations NPU Medical Necessity Statement*: Inpatient hospitalization is medically necessary and the clinically appropriate intervention at this time. We will initiate medications and make changes as indicated. Coding Level of Care Code Acute Assembly And Packing Supervisor for Francois Garrett Diagnoses Schizophrenia, chronic condition F20.9 Methamphetamine abuse F15.10
[2021-08-26 14:00] VITALS: BP 119/77; PULSE 93; RESP 18; TEMP 36.7; O2SAT 99
[2021-08-26] MEDS: OXcarbazepine 300 mg Tablet 600 MG PO (17:53)
[2021-08-26] MEDS: quetiapine 300 mg Tablet PO (17:53)
[2021-08-26 22:00] VITALS: RESP 18
[2021-08-27 06:00] VITALS: RESP 17
[2021-08-27] MEDS: OLANZapine 5 mg ODT PO (06:51)
[2021-08-27] MEDS: lithium carbonate 300 mg Capsule PO ×3 (09:06→18:24)
[2021-08-27] MEDS: ziprasidone hcl 40 mg Capsule 80 MG PO ×2 (09:06→18:24)
[2021-08-27] MEDS: docusate sodium 100 mg Capsule PO (09:07)
[2021-08-27] MEDS: cetirizine 10 mg Tablet PO (09:07)
[2021-08-27] MEDS: OXcarbazepine 300 mg Tablet PO ×2 (09:07→11:36)
[2021-08-27 14:00] VITALS: BP 108/64; PULSE 99; RESP 18; TEMP 36.5; O2SAT 97
--- NOTE | 2021-08-27 17:41 | P.NPUPN_ITS ---
Subjective NPU Subjective: Interval history: Patient presents today reporting that he is starting to feel better. He was able to have honest dialogue about his mental health and addiction issues and the impact that his addiction has on his mental health stability. He reports that he feels like the medications are starting to get to a place where he is going to have success once he leaves. He is open and desirous of discharge when we agree that he is safe. The treatment team has identified a place for him to go and I believe that place will be better than the places he is been previously based on what he understands. He reports that this place appears to be 1 is going to help him get better but also take care of the neck stages of being well so that he can have stability. Disability of discharge in the next 48 hours. Mental Status Exam MSE Comments: This is an obese white male in hospital scrubs with adequate grooming and eye contact. No abnormal movements is a mild psychomotor ret ardation. Cooperative with exam in no acute distress. Speech was normal volume slightly decreased rate. Mood described as getting better, affect slightly subdued. Thought process organized. Thought content: Patient denied suicidal or homicidal ideation, there were no delusions reported or noted, he denied any auditory or visual hallucinations. Attention and concentration appear intact and memory appeared reliable but none were formally tested. He is alert and oriented x3. Insight and judgment appear fair impulse control is limited, but improving. Vitals/I&O/Wt Last Vital Signs Temp 97.7 F 08/27/21 14:00 Pulse 99 08/27/21 14:00 Resp 16 08/27/21 21:35 BP 108/64 08/27/21 14:00 Pulse Ox 97 08/27/21 14:00 A&P Additional A&P Information (1) Schizophrenia, chronic condition: This is a 30-year-old single male with a history of schizophrenia and methamphetamine abuse admitted through the emergency room for psychosis and saying that his mother was trying to kill him. Plan: 1. Continue current medication 2. Continue every 15 minute checks for safety. 3. Encourage individual, group and milieu therapies. 4. Encourage sober living treatment after discharge at the highest level of care to which she is willing to commit. 5. We will consider discharge in the next 48 hours. (2) Methamphetamine abuse: Additional A&P Information This is a 30-year-old male who is on disability most likely from schizophrenia. He is not very forthcoming with symptoms. He agrees to take medication. Involuntary Hold Information 96 Hour Hold: 96 Hour Involuntary Admission: No Attestations NPU Medical Necessity Statement*: Inpatient hospitalization is medically necessary and the clinically appropriate intervention at this time. We will initiate medications and make changes as indicated. Coding Level of Care Code Acute [employer] Technician for Francois Garrett
[2021-08-27] MEDS: OXcarbazepine 300 mg Tablet 600 MG PO (18:24)
[2021-08-27] MEDS: quetiapine 300 mg Tablet PO (18:25)
[2021-08-27 21:35] VITALS: RESP 16
[2021-08-28] MEDS: trazodone 50 mg Tablet PO (02:54)
[2021-08-28 06:00] VITALS: BP 119/82; PULSE 116; RESP 17; TEMP 36.8; O2SAT 98
[2021-08-28] MEDS: lithium carbonate 300 mg Capsule PO ×3 (07:44→16:46)
[2021-08-28] MEDS: ziprasidone hcl 40 mg Capsule 80 MG PO ×2 (07:44→16:48)
[2021-08-28] MEDS: OXcarbazepine 300 mg Tablet PO ×2 (07:48→12:47)
--- NOTE | 2021-08-28 11:37 | DCPLANNER ---
Imm competed with pt on 08/28/21 @ 1134. Pt was given a copy of rights and stated he understood rights.
--- NOTE | 2021-08-28 13:34 | P.NPUDS_ITS ---
Diagnoses at Discharge Discharge Diagnosis (1) Schizophrenia, chronic condition: Status: Acute (2) Methamphetamine abuse: Status: Acute Reason for Visit Reason for Visit: Direct Admit NPU Brief History: History of Present Illness Jose E Bright is a 30 year old male transferred here at here from the [facility] with the following report: Upon entering the room the patient states that my mom wants to kill me and I almost got hit by four cars . He frequently looks to the corner of the room and has a dialogue with the wall. He states that he is a brother in [place] and can save me from Satan . He is also trying to get out of the cartel . Patient states that he does hear voices and admits to visual hallucinations as well. According to the patient he last used methamphetamine yesterday but has been using for 65 years. He denies walking in traffic and trying to get hit by a car. He said that he had been dismissed from [facility] because of drug use. He said they wanted him to be on a 28-day treatment program. He said that prior to his treatment at the emergency room, he suddenly decided that he needed to walk 7 miles to the [facility] program and try again to get admitted into the program. He did that with no shoes on. Several attempts were made to determine why he did not wear shoes. He only said that he suddenly realized that he needed to do it and left the house without shoes. He said that they have tried to diagnose him with schizophrenia many times but he does not believe that he has that diagnosis. He initially denied hearing voices or seeing things but later did admit to having some voices in the past but not really now. He says that they gave him Haldol and half-way but he does not know why. He was in the half-way for tampering with a vehicle and resisting arrest. He is on disability since 2016. He does not know what his diagnosis was. He said he was given an MRI and had disability 1 month later. He does not feel that he has a mental health problem except for anger problems. He denies being in the psychiatric hospital previously. However he later said that when he is in the hospital he frequently gets angry because he is in so much pain. He says when that happens shouts at him horrible things and then he becomes angry and agitated and loses his temper. He says he hates that about himself. He later said that really his only problem is keeping a bipolar. I have had 30 of them. I cannot read them or understand them. He cannot preach from them . He is a very poor historian as far as medication goes. This seems to be more from not wanting to take medication as opposed to not remembering the information. He told the nurse that he was allergic to Haldol and gets a rash. He told me that they said he had a allergic reaction but he does not believe that he does. He has taken Haldol many times. However it does not do anything for him. He does not know why they prescribe it for him. They gave him multiple doses of Zyprexa Zydis when he was in the emergency room the last few days. He said it did not do anything for him. He has prescriptions in the system for Depakote 500 mg twice a day, risperidone 2 mg and trazodone 50 mg. At 1 point he said that he had never taken them before but they prescribed them at the hospital just this week. However he also said some other things to imply that he had taken them previously and that they did not do anything for him. He primarily wanted to take something for anger and agreed to take some Trileptal. He was given the list of antipsychotics and agreed to take some Geodon. He likes the fact that it is taken with food because he likes to eat. PAST PSYCHIATRIC HISTORY As above. SOCIAL HISTORY he said that his parents were neglectful and did not teach him anything. He said that he was pretty much on his own and they never taught him how to do anything or how to act. He denies any abuse as a child. The longest job that he has held was at [employer] for about 6 months. He was in the [employer] and made it through basic training and went AWOL a week later. His most recent job was at [employer]. At one point he said he quit because he could not make too much money or he would lose his disability. 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 Hospital Course Hospital Course He slowly acclimated to the individual, group and milieu therapies provided. He was not restarted on several medications that he endorsed were not of and Geodon, Seroquel, lithium and Trileptal were initiated and titrated to effect. He had a significant response and continue to work with the treatment team to find a drug treatment center as well. Ultimately obtained and he was able to contract for safety outside the hospital prior to discharge. At the outside hospital, patient had routine laboratory studies which were within normal limits except for few outliers. Additionally there was a general medical evaluation which was also within normal limits and revealed no new acute processes. Discharge Summary: At the time of discharge, psychosis and lethality were denied. Mood and anxiety were well managed. Patient endorsed a plan to avoid all drugs of abuse and follow-up with the aftercare recommendations of the treatment team. Patient was evaluated and deemed to be absent credible lethality, and had achieved the maximum benefit from an inpatient hospitalization, so was discharged. Involuntary Hold Information 96 Hour Hold: 96 Hour Involuntary Admission: No Mental Status Exam MSE Comments: This is an obese white male in hospital scrubs with adequate grooming and eye contact. No abnormal movements except for resolving mild psychomotor retardation. Cooperative with exam in no acute distress. Speech w as normal rate and volume. Mood described as better, affect s congruent. Thought process organized. Thought content: Patient denied suicidal or homicidal ideation, there were no delusions reported or noted, he denied any auditory or visual hallucinations. Attention and concentration appear intact and memory appeared reliable but none were formally tested. He is alert and oriented x3. Insight and judgment appear fair impulse control is limited, but improving. Discharge Data Vitals: Last Vital Signs Temp 98.2 F 08/28/21 06:00 Pulse 116 H 08/28/21 06:00 Resp 17 08/28/21 06:00 BP 119/82 08/28/21 06:00 Pulse Ox 98 08/28/21 06:00 Discharge Plan Discharge Patient Disposition: Home Condition: Stable Prescriptions: New quetiapine 300 mg Tablet 300 mg PO 1700 30 Days Qty: 30 RF: 1 trazodone 50 mg Tablet 50 mg PO BEDTIME PRN (Reason: Sleep) 30 Days Qty: 30 RF: 1 cetirizine 10 mg Tablet 10 mg PO DAILY 30 Days Qty: 30 RF: 1 oxcarbazepine 300 mg Tablet 600 mg PO 1700 30 Days Qty: 60 RF: 1 oxcarbazepine 300 mg Tablet 300 mg PO 0700,1200 30 Days Qty: 60 RF: 1 lithium carbonate 300 mg Capsule 300 mg PO 0700,1200,1700 30 Days Qty: 90 RF: 1 ziprasidone HCl 40 mg Capsule 80 mg PO 0700,1700 30 Days Qty: 120 RF: 1 Discontinued haloperidol [Haldol] 5 mg Tablet 5 mg PO DAILY RF: 0 divalproex 500 mg Tablet,Delayed Release (Dr/Ec) 500 mg PO BID RF: 0 risperidone [Risperdal] 2 mg Tablet 2 mg PO TID RF: 0 trazodone 150 mg Tablet 150 mg PO BEDTIME RF: 0 benztropine 2 mg Tablet 2 mg PO DAILY RF: 0 sertraline 25 mg Tablet 25 mg PO DAILY RF: 0 Discharge Orders: Discharge Order (Routine); Ordered 08/28/21 Ordered By: Rodrigo Lino Referrals: Dr Grove [Other] - 09/10/21 9:40 am 1 [facility] [Other] - 1-3 days ($240 to enter the program. This covers the first 2 weeks. $120 per week) Discharge Diet: Regular Discharge Activity: Resume usual activity Patient Instructions: Opioid Safety Discharge Attestations NPU Time Spent in Discharge Care*: less than 30 min Specific Discharge Activities: Specific discharge activities: educating patient, discussing with case planner/social workers/dc planners, documenting/other paperwork and evaluating patient/reviewing data Coding Level of Care Code Acute [facility] DC note Diagnoses Schizophrenia, chronic condition F20.9 Methamphetamine abuse F15.10
[2021-08-28 13:36] VITALS: BP 119/82; PULSE 116; RESP 17; TEMP 36.8; O2SAT 98
[2021-08-28] MEDS: OXcarbazepine 300 mg Tablet 600 MG PO (16:48)
[2021-08-28] MEDS: quetiapine 300 mg Tablet PO (16:48)
== END 2021-08-28 18:13 | disposition home or self-care (01) | DRG 885 ==
PROVIDERS: Admitting Provider Psychiatry & Neurology Psychiatry; Visit Provider Psychiatry & Neurology Psychiatry
DX: F20.9 Schizophrenia, unspecified (principal); F15.10 Other stimulant abuse, uncomplicated
CPT/HCPCS: 36416; 82962; 96372; 97150; 97165; J1200; J2060